=== PATIENT | female | born 1985 | race Caucasian/White ===

== ENCOUNTER 2018-06-19 06:04 | Day surgery (SDC) | payer OTHER ==
[~2018-06-19] VITALS: Ht 170.2 cm; Wt 118.5 kg
[2018-06-19] VITALS (11 sets, daily range): BP systolic 111–149; BP diastolic 60–78; PULSE 76–94; RESP 14–23; Ht 170.2 cm; Wt 118.5 kg
[2018-06-19] MEDS ORDERED: METF-849 PO (06:47)
[2018-06-19] MEDS ORDERED: SIMV20TA PO (06:48)
[2018-06-19] MEDS ORDERED: CHOL100062 PO (06:48)
[2018-06-19] MEDS ORDERED: CEFAZOLIN 1 GM INJ ONE (07:00)
--- NOTE | 2018-06-19 07:23 | HPN ---
Date/Time of Note Date/Time of Note DATE: 06/19/18 TIME: 07:23 Interval H&P Admission Note Pt. seen H&P reviewed: No system changes KHANH BETH Jun 19, 2018 07:23
--- NOTE | 2018-06-19 07:29 | PREAC ---
Date/Time of Note Date/Time of Note DATE: 06/19/18 TIME: 07:28 Anesthesia Eval and Record Evaluation Time Pre-Procedure Interview DATE: 06/19/18 TIME: 07:28 Age 33 Sex female NPO: 8 hrs Preoperative diagnosis right carpal tunnel Planned procedure right carpal tunnel release Past Medical History Past Medical History: Includes GI: Morbid obesity Surgery & Anesthesia Issues No known issue Meds Anticoagulation: No Beta Fede within 24 hr: No Reason Beta Fede not given: Pt. not on B-Fede Reported Medications Cholecalciferol* (Vitamin D3*) 1,000 Unit Tablet, 1000 UNIT PO DAILY, TAB 06/19/18 Simvastatin* (Zocor*) 20 Mg Tablet, 20 MG PO QHS, #30 TAB 06/19/18 Metformin* (Glucophage*) 500 Mg Tab, 500 MG PO BID WITH MEALS, #90 TAB 06/19/18 Current Medications Cefazolin Sodium/ Dextrose 50 ml @ 100 mls/hr PRE-OP ONCE IVPB ; Start 06/19/18 at 07:30; Stop 06/19/18 at 07:59 Lactated Ringer's 1,000 ml @ 20 mls/hr Q24H ONCE IV* ; Start 06/19/18 at 07:30; Stop 06/20/18 at 07:29 Meds reviewed: Yes Allergies Coded Allergies: No Known Allergy (Unverified , 06/19/18) Allergies Reviewed: Yes Labs/Studies Labs Reviewed: Reviewed by anesthesiologist Result Diagram: 06/19/18 0645 Laboratory Tests 06/19/18 06:45 test: N/A Pre-procedure Exam Last vitals Vital Signs Date Temp Pulse Resp B/P (MAP) Pulse Ox O2 O2 Flow FiO2 Time Delivery Rate 06/19/18 98.1 78 18 149/70 99 Room Air 07:01 (96) Airway: Adequate mouth opening, Adequate thyromental dist Mallampati: Mallampati II Teeth: Normal Lung: Normal Heart: Normal ASA Physical Status ASA physical status: 3 Emergency: None Planned Anesthetic General/MAC: Mask, LMA Planned Pain Management Parenteral pain med, Local by surgeon Pre-operative Attestations Prior to commencing anesthesia and surgery, the patient was re-evaluated, there was verification of: *The patient's identity *The results of appropriate recent lab work and preoperative vital signs *The above evaluation not changing prior to induction *Anesthetic plan, risk benefits, alternative and complications discussed with patient/family; questions answered; patient/family understands, accepts and wishes to proceed. CALOS OLIVER MD Jun 19, 2018 07:29
[2018-06-19] MEDS ORDERED: CEFAZOLIN 2 GM/50 ML (PMX) 50 ML IVPB ONE (07:30)
[2018-06-19] MEDS ORDERED: LACTATED RINGER'S 1,000 ML IV* ONE (07:30)
[2018-06-19] MEDS ORDERED: MIDAZOLAM 1 MG/ML 2 ML INJ ONE (07:35)
[2018-06-19] MEDS ORDERED: FENTAnyl 50 MCG/ML VIAL ONE (07:35)
[2018-06-19] MEDS ORDERED: BUPIVACAINE 0.5% (SDV) 30 ML INJ ONE (07:36)
[2018-06-19] MEDS ORDERED: PROPOFOL 80 ML ONE (08:03)
[2018-06-19] MEDS ORDERED: LIDOCAINE 2% (SDV) 5 ML INJ ONE (08:03)
--- NOTE | 2018-06-19 08:07 | OPPN ---
Date/Time of Note Date/Time of Note DATE: 06/19/18 TIME: 08:06 Operative Report Preoperative Diagnosis right carpal tunnel syndrome Postoperative Diagnosis right carpal tunnel syndrome Operation/Procedure Performed right carpal tunnel release Surgeon see signature line web marketing assistant none Anesthesia: MAC Estimated blood loss: 0 - 10 ml's Transfusion Required none Specimen none Grafts/Implants none Complications none KHANH BETH Jun 19, 2018 08:07
--- NOTE | 2018-06-19 08:13 | PAC ---
Date/Time of Note Date/Time of Note DATE: 06/19/18 TIME: 08:13 Post-Anesthesia Notes Post-Anesthesia Note Last documented vital signs Vital Signs Date Temp Pulse Resp B/P (MAP) Pulse Ox O2 O2 Flow FiO2 Time Delivery Rate 06/19/18 98.1 78 18 149/70 99 Room Air 07:01 (96) Activity: WNL Respiratory function: WNL Cardiovascular function: WNL Mental status: Baseline Pain reasonably controlled: Yes Hydration appropriate: Yes Nausea/Vomiting absent: Yes Comments BP: 110/79 HR: 99 RR: 16 T: 98 SaO2: 99% CALOS OLIVER MD Jun 19, 2018 08:13
[2018-06-19] MEDS ORDERED: PROCHLORPERAZINE 10 MG INJ IV PRN (08:30)
[2018-06-19] MEDS ORDERED: MEPERIDINE 25 MG INJ IV PRN (08:30)
[2018-06-19] MEDS ORDERED: HYDROmorphONE 1 MG/5 ML IV SYRINGE IV PRN ×3 (08:30)
[2018-06-19] MEDS ORDERED: OXYCODONE/ACETAMINOPHEN (5/325) TAB PO PRN ×2 (08:30)
[2018-06-19] MEDS ORDERED: DIPHENHYDRAMINE 50 MG INJ IV PRN (08:30)
[2018-06-19] MEDS ORDERED: ONDANSETRON 4 MG INJ IV PRN (08:30)
[2018-06-19] MEDS ORDERED: FENTAnyl 50 MCG/ML VIAL IV PRN ×3 (08:30)
--- NOTE | 2018-06-19 11:38 | OPR ---
DATE OF OPERATION: 06/19/2018 SURGEON: Myron Salgado MD ANESTHESIA: Local MAC. PREOPERATIVE DIAGNOSIS: Right carpal tunnel syndrome. POSTOPERATIVE DIAGNOSIS: Right carpal tunnel syndrome. PROCEDURE: Right carpal tunnel release, open. OPERATIVE FINDINGS: Compression of median nerve at carpal tunnel. INDICATION FOR PROCEDURE: This 33-year-old female with longstanding right carpal tunnel symptoms who failed conservative management and elected to proceed with surgical intervention, understanding risks and benefits. DESCRIPTION OF PROCEDURE: The patient was seen in the preoperative area and all of her questions answered. Again, she gave informed consent understanding risks and benefits. She was taken to the operative suite and placed in the supine position. Sedation was administered as was Ancef 2 grams IV. Tourniquet placed in the right upper extremity and right upper extremity was prepped with ChloraPrep stick and draped in usual sterile fashion. Esmarch bandage was used to exsanguinate the extremity and tourniquet inflated to 250 mmHg. A 2 cm incision at the base of the palm was utilized with sharp dissection carried down through skin and subcutaneous tissue. The palmar aponeurosis was incised along its ulnar border and retractors were deepened. The transverse carpal ligament was divided along its ulnar border approximately 3 mm radial to the hook of the hamate. Retractors placed proximally and distally and the transverse carpal ligament was divided under direct visualization. Wound copiously irrigated and skin closed with 4-0 Nylon. Xeroform placed over the wound followed by sterile gauze, webril and bias bandage. Patient awakened from anesthesia and taken to the post-op area in stable condition. Tolerated procedure well without complication. SPECIMENS: none EBL: 5cc SPONGE, INSTRUMENT, NEEDLE COUNT: Correct CONDITION ON DISCHARGE: Stable Patient was given a non-refillable 5 day prescription for pain medication for surgery today. Dictated By: MYRON SILVA/BECKIE Conf#: [id number] DID#: [id number] MTDD
== END 2018-06-19 09:25 | disposition home or self-care (01) ==
LOC: SDS 06:04
PROVIDERS: ATTEND Orthopaedic Surgery Hand Surgery
DX: G56.01 Carpal tunnel syndrome, right upper limb (principal)
CPT/HCPCS: 64721; 80053; 85025; 85610; 85730; J2250; J3010; Z7512; Z7610; J0690